=== PATIENT | male | born 1980 | race Caucasian/White ===

== ENCOUNTER → 2023-12-06 15:01 | Outpatient (BNVA) | payer OTHER, SELFPAY | PROVIDERS: Visit Provider Registered Nurse Neonatal Intensive Care | DX: J02.9 Acute pharyngitis, unspecified (principal) | CPT/HCPCS: 87880 ==

== ENCOUNTER 2024-04-20 19:31 | Emergency (ER) | payer SELFPAY ==
[2024-04-20 19:38] VITALS: BP 153/92; PULSE 64; RESP 24; TEMP 36.5; O2SAT 97; BMI 27.0
[2024-04-20 20:06] LABS: Charge for UA Resulting for Rev
[2024-04-20 20:15] LABS: Basophils # 0.1 10^3/uL (0.0-0.1); Basophils % 0.3 %; Eosinophils % 0.1 %; Hematocrit 47.1 % (37-53); Lymphocytes # 1.1 10^3/uL (0.8-4.8); Lymphocytes % 6.1 %; Mean Corpuscular HGB Conc 33.3 g/dL (30-55); Mean Corpuscular Hemoglobin 33.1 pg (27-33); Mean Corpuscular Volume 99.2 fl (82-101); Mean Platelet Volume 11.2 fL (7.4-10.4); Monocytes # 0.9 10^3/uL (0.2-0.9); Monocytes % 5.2 %; Neutrophils # 15.28 10^3/uL (1.8-7.7); Nucleated Red Blood Cells % 0 %; Platelet Count 265 10^3/cmm (157-399); Red Blood Count 4.75 10^6/uL (3.85-5.65); Red Cell Distribution Width 13.7 % (12.1-15.1)
[2024-04-20 20:16] LABS: Bilirubin Urine Negative (Negative); Blood Urine 1+ (Negative); Glucose Urine UA Negative (Normal); Ketones Urine 1+ (Negative); Leukocyte Esterase Urine Negative (Negative); Nitrate Urine Negative (Negative); Protein Urine 1+ (Negative); Urine Appearance Clear (CLEAR); Urine Color Yellow (Yellow); pH Urine 5.5 (5-7)
[2024-04-20 20:21] LABS: Bacteria Urine None Seen /hpf; Hyaline Casts Urine 1.21 /lpf; Specific Gravity, Urine 1.042 (1.005-1.030); Squamous Epithelial Cell Urine 0-5 /hpf (0-5); WBC Urine 0-5 /hpf (0-5)
[2024-04-20 20:25] LABS: Alanine Aminotransferase 18 U/L (0-41); Alkaline Phosphatase 54 U/L (40-130); Anion Gap 16.1 (5-19); Aspartate Amino Transferase 16 U/L (0-40); Blood Urea Nitrogen 19 mg/dL (6-20); Calcium 9.6 mg/dL (8.5-10.5); Carbon Dioxide 25 mmol/L (22-29); Chloride 102 mmol/L (98-107); Creatinine Clr Calc Pharmacy 105.3431; Globulin 3.1 g/dL (1.3-4.6); Glomerular Filtration Rate 73.4 mL/min (90-130); Glucose 131 mg/dL (65-115); Lipase 12 U/L (13-60); Osmolality Calculated 292 mOsm/kg (285-295); Potassium 4.1 mmol/L (3.5-5.1); Sodium 139 mmol/L (136-145); Total Bilirubin 0.4 mg/dL (0.15-1.2); Total Protein 8.1 g/dL (6.6-8.7)
[2024-04-20 20:32] VITALS: BP 128/74; PULSE 56; RESP 18; O2SAT 97
--- NOTE | 2024-04-20 20:46 | CTR_ITS ---
PROCEDURE INFORMATION: Exam: CT Abdomen And Pelvis With Contrast Exam date and time: 04/20/2024 8:56 PM Age: 43 years old Clinical indication: Nausea and vomiting; Abdominal pain; Localized; Right lower quadrant (rlq); Patient HX: C/O rlq pain with n/v TECHNIQUE: Imaging protocol: Computed tomography of the abdomen and pelvis with contrast. Radiation optimization: All CT scans at this facility use at least one of these dose optimization techniques: automated exposure control; mA and/or kV adjustment per patient size (includes targeted exams where dose is matched to clinical indication); or iterative reconstruction. Contrast material: OMNI 350; Contrast volume: 100 ml; Contrast route: INTRAVENOUS (IV); COMPARISON: No relevant prior studies available. RADIATION DOSE METRICS: Total DLP (mGy-cm): 582.43 FINDINGS: Liver: Normal. No mass. Gallbladder and biliary ducts: Normal. No calcified stones. No ductal dilation. Pancreas: Normal. No ductal dilation. Spleen: Normal. No splenomegaly. Adrenal glands: Normal. No mass. Kidneys and ureters: 3 mm calculus at the level of the right ureterovesicular junction causing a mild degree of hydroureteronephrosis. Mild right perinephric fat stranding. Small bilateral simple renal cysts, no follow-up needed. Stomach and bowel: Unremarkable. No obstruction. No mucosal thickening. Appendix: No evidence of appendicitis. Intraperitoneal space: Unremarkable. No free air. No significant fluid collection. Vasculature: Unremarkable. No abdominal aortic aneurysm. Lymph nodes: Unremarkable. No enlarged lymph nodes. Urinary bladder: Unremarkable as visualized. Reproductive: Unremarkable as visualized. Bones/joints: Moderate intervertebral disc space narrowing at L5-S1. No acute fracture. Soft tissues: Unremarkable. CT/CT abdomen pelvis w con* [id number] IMPRESSION: 3 mm calculus at the level of the right ureterovesicular junction causing a mild degree of hydroureteronephrosis. COMMENTS: Consistent with the [employer]'s Incidental Findings Committee white paper (J Am Mayelin Radiol 2018): Any incidental renal lesion less than 1 cm or classified as too small to characterize, or any incidental cystic renal lesion characterized as simple-appearing, is likely benign. No follow-up imaging is recommended for these lesions per consensus recommendations based on imaging criteria.
[2024-04-20] MEDS: iohexol 350 mg/mL 500 mL Btl (per mL) IV (20:58)
[2024-04-20 21:00] VITALS: BP 111/65; PULSE 85; RESP 16; O2SAT 97
--- NOTE | 2024-04-20 21:25 | ED_ITS ---
HPI - Abdominal Pain 2 General: Chief Complaint: Abdominal Pain Stated Complaint: severe pain low right abd Time Seen by Provider: 04/20/24 19:59 Source: patient Mode of arrival: ambulatory Limitations: no limitations History of Present Illness: Patient is a 43-year-old male presenting to the emergency department complaining of right lower quadrant abdominal pain beginning today. Still has his appendix and gallbladder. Noting nausea, vomiting, and 1 episode of diarrhea. Stating the pain is a severe 10/10, does not radiate. No history of kidney stones. States he is been having trouble urinating. No fevers. He arrives vitals unremarkable and he is afebrile. He is taking Tylenol for his pain. No specific alleviating or exacerbating factors reported. MD elicited complaint: abdominal pain Pertinent past history: none Onset (ago): hour(s) Pain Consistency: constant Location: RLQ Severity: severe Pain scale (0-10): 10 Quality: sharp Radiation: none Exacerbating factors: nothing Relieving factors: nothing Associated Symptoms: Reports diarrhea, nausea and vomiting; Denies bloating, change in stool character, chills, constipation, dysuria, fever(s) and hematochezia Review of Systems 2 General: Reports: 10 or more systems reviewed and unremarkable except in HPI and below Const: Denies: fever(s), chills, change in appetite, change in weight or diaphoresis ENMT: Denies: throat pain or hoarseness Card: Denies: chest pain, palpitations or lightheadedness Resp: Denies: dyspnea, productive cough or wheezing GI: Reports: abdominal pain, nausea, vomiting and diarrhea; Denies: constipation, bloating, change in stool character or hematochezia : Reports: difficulty urinating; Denies: flank pain, dysuria, urinary frequency or urinary urgency Musc: Denies: neck pain or back pain Skin/Breast: Denies: rash or new lesions Neuro: Denies: headache(s) or dizziness Physical Exam 2 Const: COMMON NORMALS: average body habitus, patient oriented x3, no limitations, healthy appearing, alert and well nourished GENERAL APPEARANCE: cooperative and in distress (From pain) ORIENTATION/CONSCIOUSNESS: Yes awake HENMT: COMMON NORMALS: normocephalic, atraumatic, hearing grossly normal bilaterally, external ears normal, Normal external nose present, Normal nasal mucous membranes and turbinates present and moist oral mucous membranes HEAD & SCALP: normocephalic and atraumatic NOSE: Normal external nose present and Normal nasal mucous membranes and turbinates present EXTERNAL EAR: Yes external ears normal Eye: COMMON NORMALS: Equal, round and reactive pupils present, EOMs intact bilaterally, conjunctivae normal and normal visual tapia by confrontation C ONJUNCTIVA: Yes conjunctivae normal PUPIL: Yes Equal, round and reactive pupils present Neck/C-Spine: COMMON NORMALS: full ROM, supple, no meningeal signs and no JVD Resp: COMMON NORMALS: normal respiratory effort, No retractions, No use of accessory muscles and clear to auscultation bilaterally AUSCULTATION: clear to auscultation bilaterally, no crackles, no rales, no rhonchi and no wheezes Cardio: COMMON NORMALS: no JVD, regular rate, regular rhythm, S1 normal heart sound present, S2 normal heart sound present, No gallops present (Cardio), No clicks present (Cardio), No murmurs present (Cardio), No rub (Cardio) and Peripheral pulses 2+ throughout RATE: regular rate RHYTHM: regular rhythm HEART SOUNDS: S1 normal heart sound present and S2 normal heart sound present PERIPHERAL PULSES: Peripheral pulses 2+ throughout GI: COMMON NORMALS: Normal to inspection, nondistended, normoactive bowel sounds present, Soft to palpation, No hepatosplenomegaly present and no masses AUSCULTATION: Yes normoactive bowel sounds PALPATION: Yes Soft to palpation, No Guarding due to palpation present (GI), No Rigid due to palpation and Yes No hepatosplenomegaly present RECTAL EXAM: Yes deferred OTHER: Right lower quadrant tenderness to palpation, negative Rovsing's : COMMON NORMALS: Yes no CVA tenderness BLADDER/KIDNEY EXAM: Yes no CVA tenderness Back/Pelvis: COMMON NORMALS: no CVA tenderness Extremity: COMMON NORMALS: normal to inspection and full ROM Neuro: COMMON NORMALS: patient oriented x3, moves all extremities, no focal motor deficits and no sensory deficits noted SENSORIUM/ORIENTATION: Yes alert MENINGEAL SIGNS: Yes no meningeal signs Psych: COMMON NORMALS: mental status grossly normal, cooperative and speech normal SPEECH: Yes normal speech Skin: COMMON NORMALS: no rashes or lesions noted GENERAL SKIN EXAM: no rashes or lesions noted Course 2 Vital Signs: Vital signs: Vital Signs Temperature 97.7 F 04/20/24 19:38 Pulse Rate 85 04/20/24 21:00 Respiratory Rate 16 04/20/24 21:00 Blood Pressure 111/65 04/20/24 21:00 Pulse Oximetry 97 04/20/24 21:00 Oxygen Delivery Me thod Room Air 04/20/24 21:00 MDM - Abdominal Pain Medical Decision Making Patient presented with acute onset right lower quadrant pain. Still has his gallbladder and appendix. Vitals normal on arrival and condition has remained stable throughout the ED course. CBC found elevated white count with left shift, rest of his labs unremarkable. Urine ultimately was unremarkable, aside from some blood. CT of the abdomen and pelvis did show a 3 mm stone at the right UVJ, did not appear obstructive and does appear that I will pass on its own. Patient was given morphine here as well as nausea medications and fluids. I additionally gave him 1 dose of Flomax to help pass the stone, and will send him home with pain medications. I instructed him to increase his fluid intake, as after further evaluation he virtually has no water intake. He will be given 1 day off of work to recover tomorrow, and reasons to return were discussed. Lab Data 04/20/24 19:47 04/20/24 19:47 Labs/Radiology: Radiology Impressions Abdomen/Pelvis CT 04/20/24 20:46 IMPRESSION: 3 mm calculus at the level of the right ureterovesicular junction causing a mild degree of hydroureteronephrosis. COMMENTS: Consistent with the [employer]'s Incidental Findings Committee white paper (J Am Mayelin Radiol 2018): Any incidental renal lesion less than 1 cm or classified as too small to characterize, or any incidental cystic renal lesion characterized as simple-appearing, is likely benign. No follow-up imaging is recommended for these lesions per consensus recommendations based on imaging criteria. Laboratory Results WBC 17.40 10^3/uL (3.29-11.43) H 04/20/24 19:47 RBC 4.75 10^6/uL (3.85-5.65) 04/20/24 19:47 Hgb 15.70 g/dL (11.27-16.99) 04/20/24 19:47 Hct 47.1 % (37-53) 04/20/24 19:47 MCV 99.2 fl (82-101) 04/20/24 19:47 MCH 33.1 pg (27-33) H 04/20/24 19:47 MCHC 33.3 g/dL (30-55) 04/20/24 19:47 RDW 13.7 % (12.1-15.1) 04/20/24 19:47 Plt Count 265 10^3/cmm (157-399) 04/20/24 19:47 MPV 11.2 fL (7.4-10.4) H 04/20/24 19:47 Neut % (Auto) 88.0 % 04/20/24 19:47 Lymph % (Auto) 6.1 % 04/20/24 19:47 [place] % (Auto) 5.2 % 04/20/24 19:47 Eos % (Auto) 0.1 % 04/20/24 19:47 Baso % (Auto) 0.3 % 04/20/24 19:47 Neut # (Auto) 15.28 10^3/uL (1.8-7.7) H 04/20/24 19:47 Lymph # (Auto) 1.1 10^3/uL (0.8-4.8) 04/20/24 19:47 [place] # (Auto) 0.9 10^3/uL (0.2-0.9) 04/20/24 19:47 Eos # (Auto) 0.0 10^3/uL (0.0-0.8) 04/20/24 19:47 Baso # (Auto) 0.1 10^3/uL (0.0-0.1) 04/20/24 19:47 Nucleated RBC % (auto) 0 % 04/20/24 19:47 Nucleated RBCs # 0.0 /100WBC 04/20/24 19:47 Sodium 139 mmol/L (136-145) 04/20/24 19:47 Potassium 4.1 mmol/L (3.5-5.1) 04/20/24 19:47 Chloride 102 mmol/L (98-107) 04/20/24 19:47 Carbon Dioxide 25 mmol/L (22-29) 04/20/24 19:47 Anion Gap 16.1 (5-19) 04/20/24 19:47 BUN 19 mg/dL (6-20) 04/20/24 19:47 Creatinine 1.1 mg/dL (0.7-1.2) 04/20/24 19:47 GFR Calculation 73.4 mL/min (90-130) L 04/20/24 19:47 Glucose 131 mg/dL (65-115) H 04/20/24 19:47 Calculated Osmolality 292 mOsm/kg (285-295) 04/20/24 19:47 Calcium 9.6 mg/dL (8.5-10.5) 04/20/24 19:47 Total Bilirubin 0.4 mg/dL (0.15-1.2) 04/20/24 19:47 AST 16 U/L (0-40) 04/20/24 19:47 ALT 18 U/L (0-41) 04/20/24 19:47 Alkaline Phosphatase 54 U/L (40-130) 04/20/24 19:47 Total Protein 8.1 g/dL (6.6-8.7) 04/20/24 19:47 Albumin 5.0 g/dL (3.5-5.2) 04/20/24 19:47 Globulin 3.1 g/dL (1.3-4.6) 04/20/24 19:47 Lipase 12 U/L (13-60) L 04/20/24 19:47 Urine Color Yellow (Yellow) 04/20/24 19:40 Urine Appearance Clear (CLEAR) 04/20/24 19:40 Urine pH 5.5 (5-7) 04/20/24 19:40 Ur Specific [place] 1.042 (1.005-1.030) H 04/20/24 19:40 Urine Protein 1+ (Negative) A 04/20/24 19:40 Urine Glucose (UA) Negative (Normal) 04/20/24 19:40 Urine Ketones 1+ (Negative) H 04/20/24 19:40 Urine Blood 1+ (Negative) A 04/20/24 19:40 Urine Nitrate Negative (Negative) 04/20/24 19:40 Urine Bilirubin Negative (Negative) 04/20/24 19:40 Urine Urobilinogen 1.0 mg/dL (Negative) 04/20/24 19:40 Ur Leukocyte Esterase Negative (Negative) 04/20/24 19:40 Urine RBC 3-5 /hpf (0-2) 04/20/24 19:40 Urine WBC 0-5 /hpf (0-5) 04/20/24 19:40 Ur Squamous Epith Cells 0-5 /hpf (0-5) 04/20/24 19:40 Amorphous Sediment Not Reportable 04/20/24 19:40 Urine Bacteria None seen /hpf (NONE) 04/20/24 19:40 Hyaline Casts 1.21 /lpf 04/20/24 19:40 All radiology interpretation(s) finalized by discharge Discharge Plan Discharge Patient Disposition: Home Clinical Impression: Ureterolithiasis Condition: Stable Prescriptions: New hydrocodone-acetaminophen 7.5-325 mg tablet 1 tab PO Q8H PRN (Reason: pain) Qty: 14 0RF No Action fluticasone propionate [Flonase Allergy Relief] 50 mcg/actuation spray,suspension 1 spray intranasal DAILY PRN (Reason: allergy symptoms) Qty: 16 0RF Rx Instructions: administer into each nostril Discharge Orders: Discharge ED (Routine); Ordered 04/20/24 Ordered By: Cezar Preston Discharge Diet: As Directed Discharge Activity: Increase activity as tolerated Patient Instructions: Ureteral Stones (ED), Opioid Safety Activity Restrictions/Additional Instructions: Please increase your fluid intake. Take pain medications as prescribed. Work note is provided. Return with any new or concerning symptoms you may have. Stand Alone Forms: Work/School Release Coding Level of Care Code ED [employer] for Ray Elaine
[2024-04-20 22:01] VITALS: O2SAT 98
[2024-04-20] MEDS: sodium chloride 0.9% 1,000 ML 999 ML IV (22:01)
[2024-04-20] MEDS: tamsulosin 0.4 mg Capsule PO (22:01)
[2024-04-20] MEDS: morphine 4 mg/mL SDV 1 mL IVP (22:01)
[2024-04-20] MEDS: ondansetron 2 mg/ML SDV 2 mL 4 MG IVP (22:01)
[2024-04-20 22:13] VITALS: BP 120/66; PULSE 80; RESP 16; O2SAT 97
[2024-04-20 22:14] VITALS: BP 120/66; PULSE 80; RESP 16
== END 2024-04-20 22:16 | disposition home or self-care (01) ==
PROVIDERS: Emergency Medicine; Emergency Provider Physician Assistant
DX: N20.1 Calculus of ureter (principal)
CPT/HCPCS: 36415; 74177; 80053; 81003; 81015; 83690; 85025; 96374; 96375; 99285; J2270; J2405; J7030; Q9967